=== PATIENT | female | born 1965 | race Asian ===

== ENCOUNTER 2016-06-22 11:12 | Inpatient (IN) | payer OTHER ==
[2016-06-20 13:41] LABS: HCT 39.6 % (37.0-47.0); HGB 13.3 g/dl (12.5-16.0); MCH 29.2 pg (25.0-31.0); MCHC 33.6 g/dL (32.0-36.0); MPV 8.5 fL (6.0-9.5); RBC 4.55 M/uL (4.20-5.40); RDW 13.3 % (11.5-14.0); WBC 7.1 K/uL (4.0-10.5)
[2016-06-20 13:58] LABS: CREATININE 0.6 mg/dL (0.5-1.0); POTASSIUM 3.6 mmol/L (3.5-5.1)
[2016-06-22 09:41] LABS: BILIRUBIN NEGATIVE (NEGATIVE); BLOOD NEGATIVE Ery/uL (NEGATIVE); CLARITY CLEAR (CLEAR); COLOR YELLOW (YELLOW); GLUCOSE (U) NORMAL (NORMAL); KETONE (U) NEGATIVE (NEGATIVE); LEUKOCYTES NEGATIVE Leu/uL (NEGATIVE); NITRITE NEGATIVE (NEGATIVE); PROTEIN NEGATIVE (NEGATIVE); SPECIFIC GRAVITY 1.025 (1.001-1.030); UROBILINOGEN 0.2 mg/dL (0.2-1.0)
[2016-06-23 04:17] LABS: HCT 34.5 % (37.0-47.0); HGB 11.5 g/dl (12.5-16.0); MCH 29.9 pg (25.0-31.0); MCHC 33.3 g/dL (32.0-36.0); MCV 89.8 fL (78.0-100.0); MPV 9.3 fL (6.0-9.5); RBC 3.84 M/uL (4.20-5.40); RDW 13.4 % (11.5-14.0); WBC 13.3 K/uL (4.0-10.5)
[2016-06-23 04:34] LABS: CREATININE 0.8 mg/dL (0.5-1.0); POTASSIUM 3.9 mmol/L (3.5-5.1)
[2016-06-24 05:40] LABS: HCT 33.5 % (37.0-47.0); HGB 10.9 g/dl (12.5-16.0); MCH 29.4 pg (25.0-31.0); MCHC 32.5 g/dL (32.0-36.0); MCV 90.3 fL (78.0-100.0); MPV 8.7 fL (6.0-9.5); RBC 3.71 M/uL (4.20-5.40); RDW 13.3 % (11.5-14.0); WBC 11.2 K/uL (4.0-10.5)
[2016-06-25] MEDS ORDERED: VALSARTAN-HCTZ1 EAC1 PO (11:07)
[2016-06-25] MEDS ORDERED: VENTOLIN (2.5 MG/3 M NEB (11:08)
[2016-06-25] MEDS ORDERED: LOPRESSOR25 MG PO (11:08)
[2016-06-25] MEDS ORDERED: VENTOLIN HFA IN18 GM INH (11:08)
[2016-06-25] MEDS ORDERED: BETAPACE80 MG PO (11:08)
[2016-06-25] MEDS ORDERED: MOMETASONE FURO45 GM TOP (11:10)
[2016-06-25] MEDS ORDERED: THERA-M CAPLET1 EACH PO (11:10)
[2016-06-25] MEDS ORDERED: VITAMIN D-32000 UNI1 PO (11:10)
[2016-06-25] MEDS ORDERED: NASAL SPRAY (11:11)
--- NOTE | 2016-06-25 12:38 | NUR ---
1200 LUIS DRAIN D/C'D. BANDAGE APPLIED. PT TOLERATED WELL
== END 2016-06-25 12:00 | disposition home or self-care (01) | DRG 621 ==
LOC: FTCU 11:12
PROVIDERS: Physician Assistant Surgical; ADMIT Surgery
PROC: 0DJ08ZZ Inspection of Upper Intestinal Tract, Via Natural or Artificial Opening Endoscopic (ICD-10-PCS; 2016-06-22)
PROC: 0DB64Z3 Excision of Stomach, Percutaneous Endoscopic Approach, Vertical (ICD-10-PCS; principal; 2016-06-22 08:15)
DX: E66.01 Morbid (severe) obesity due to excess calories (principal); I10 Essential (primary) hypertension; J30.9 Allergic rhinitis, unspecified; I77.810 Thoracic aortic ectasia; J45.909 Unspecified asthma, uncomplicated; K21.9 Gastro-esophageal reflux disease without esophagitis; M54.5 Low back pain; Z80.3 Family history of malignant neoplasm of breast; Z82.3 Family history of stroke; Z68.42 Body mass index [BMI] 45.0-49.9, adult
CPT/HCPCS: 36415; 74240; 80048; 81003; 82150; 84703; 86850; 86900; 86901; 88307; 94010; J0131; J0690; J1100; J1170; J1885; J1980; J2405; J2704; J2710; J3010; J3411; J3475

== ENCOUNTER → 2020-08-27 | Day surgery (SDC) | payer OTHER ==
[~2020-08-27] VITALS: Ht 162.6 cm; Wt 120.2 kg
[~2020-08-27] MED LIST: ASPIRIN CHEWABL81 MG PO; BACLOFEN 10MG T10 MG PO; BETAPACE80 MG PO; CALCIUM WITH V1 EAC2 PO; CLARITIN10 MG PO; DUONEB 2.5-0.5M1 AMP NEB; GABAPENTIN400 MG PO; IBUPROFEN800 M1 PO; IRON PO; LOPRESSOR25 MG PO; MAGNESIUM PO; MOMETASONE FURO45 GM TOP; MULTIVITAMIN PO; NASAL SPRAY; NEURONTIN300 MG PO; POTASSIUM CHLO10 ME2 PO; THERA-M CAPLET1 EACH PO; TIZANIDINE HCL2 MG PO; TOPROL XL 25MG25 MG PO; VALSARTAN-HCTZ1 EAC1 PO; VENTOLIN (2.5 MG/3 M NEB; VENTOLIN HFA IN18 GM INH; VITAMIN D-32000 UNI1 PO
[2020-08-27 07:16] LABS: HCG (URINE) SCREEN NEGATIVE (NEGATIVE)
[2020-08-27 08:10] LABS: CREATININE 0.72 mg/dL (0.51-0.95); POTASSIUM 3.7 mmol/L (3.5-5.1)
== END | disposition home or self-care (01) ==
LOC: FAS 06:49
PROVIDERS: Obstetrics & Gynecology
DX: N88.8 Other specified noninflammatory disorders of cervix uteri (principal); D25.9 Leiomyoma of uterus, unspecified; I10 Essential (primary) hypertension; Z83.3 Family history of diabetes mellitus; Z87.891 Personal history of nicotine dependence
CPT/HCPCS: 36415; 80048; 84703; J1100; J1885; J2250; J2405; J2704; J3010; J7120